=== PATIENT | male | born 1985 | race Caucasian/White ===

== ENCOUNTER 2021-07-16 22:56 | Emergency (ER) | payer SELFPAY ==
[2021-07-16] MEDS ORDERED: FLONASE 0.05% N16 GM (23:07)
[2021-07-16] MEDS ORDERED: DELSYM30 MG/5 ML PO (23:07)
== END 2021-07-16 23:20 | disposition home or self-care (01) ==
LOC: ER1 22:56
DX: U07.1 COVID-19 (principal); J06.9 Acute upper respiratory infection, unspecified; Z88.1 Allergy status to other antibiotic agents; F17.210 Nicotine dependence, cigarettes, uncomplicated
CPT/HCPCS: 99283; U0003